=== PATIENT | female | born 1945 | race Caucasian/White ===

== ENCOUNTER → 2021-01-15 | Outpatient (CLI) | payer MEDICARE, OTHER ==
[~2021-01-15] MED LIST: AMLO-150 PO; ASPI-496 PO; CALC0.25 PO; CALC0.5C9 PO; CHOL100012 PO; ENAL1TAB PO; FISH1CAP PO; FLUT9.9S NS; LACT1CAP35 PO; LACT1CAP47 PO; LEVO88TA4 PO; POLY17PO50 PO; POTA20TA89 PO; SIMV20TA19 PO; ZOLE5INF IV; [UNRECOGNIZED DRUG - CODE] VG
== END | disposition home or self-care (01) ==
LOC: CFH 14:06
PROVIDERS: ATTEND Obstetrics & Gynecology
DX: N63.15 Unspecified lump in the right breast, overlapping quadrants (principal)
CPT/HCPCS: 76642; 77062; 77066; G0279